=== PATIENT | male | born 1960 | race Caucasian/White ===

== ENCOUNTER 2016-12-10 20:48 | Observation (INO) | payer BC ==
--- NOTE | ~2016-12-10 | EKG ---
PATIENT: TAWANA HERNÁNDEZ UNIT #: [id number] Ventricular Rate: 192 BPM Atrial Rate: 192 BPM QRS Duration: 90 ms Q-T Interval: 244 ms QTC Calculation(Bezet): 436 ms Calculated R [place]: -13 degrees Calculated T [place]: 117 degrees Diagnosis Line: Supraventricular tachycardia Diagnosis Line: Marked ST abnormality, possible inferior Diagnosis Line: subendocardial injury Diagnosis Line: Abnormal ECG Diagnosis Line: No previous ECGs available Diagnosis Line: Confirmed by ISAIAH PIERRE MD ([id number]) on Diagnosis Line: 12/11/2016 4:42:28 PM INTERPRETING MD: GABBY MULLER
--- NOTE | ~2016-12-10 | EKG ---
PATIENT: TAWANA HERNÁNDEZ UNIT #: [id number] Ventricular Rate: 100 BPM Atrial Rate: 100 BPM P-R Interval: 152 ms QRS Duration: 100 ms Q-T Interval: 370 ms QTC Calculation(Bezet): 477 ms P [place]: 62 degrees Calculated R [place]: -6 degrees Calculated T [place]: 64 degrees Diagnosis Line: Normal sinus rhythm Diagnosis Line: Normal ECG Diagnosis Line: When compared with ECG of 10-DEC-2016 20:54, Diagnosis Line: (unconfirmed) Diagnosis Line: Vent. rate has decreased BY 92 BPM Diagnosis Line: ST no longer depressed in Inferior leads Diagnosis Line: ST no longer depressed in Lateral leads Diagnosis Line: Confirmed by ISAIAH PIERRE MD ([id number]) on Diagnosis Line: 12/11/2016 4:42:35 PM INTERPRETING MD: GABBY MULLER
--- NOTE | ~2016-12-10 | EKG ---
PATIENT: TAWANA HERNÁNDEZ UNIT #: [id number] Ventricular Rate: 64 BPM Atrial Rate: 64 BPM P-R Interval: 148 ms QRS Duration: 104 ms Q-T Interval: 474 ms QTC Calculation(Bezet): 489 ms P [place]: 69 degrees Calculated R [place]: -16 degrees Calculated T [place]: 49 degrees Diagnosis Line: Normal sinus rhythm Diagnosis Line: Prolonged QT Diagnosis Line: Abnormal ECG Diagnosis Line: No previous ECGs available Diagnosis Line: Confirmed by BAILEY HAAS MD ([id number]) on Diagnosis Line: 12/14/2016 3:37:13 PM INTERPRETING MD: TANIA
--- NOTE | ~2016-12-10 | DS ---
Unit #: [id number] #: [id number] Patient: TAWANA HERNÁNDEZ [id number] [address] [place], [place] [address] [id number] I MR#: [id number] NAME: TAWANA HERNÁNDEZ. ROOM: 328 Age: 56 Sex: M Admission Date: 12/11/2016 : 1960 Discharge Date: 12/12/2016 Attending Physician: Darrin Her M.D. Primary Care Physician: Marisa Rai M.D. DISCHARGE SUMMARY DISCHARGE DIAGNOSES 1. Paroxysmal supraventricular tachycardia, now sinus rhythm. 2. Mildly elevated troponin, peak troponin 0.16. 3. Hypertension. 4. Hyperlipidemia. 5. Diabetes mellitus type 2. 6. Tobacco abuse. 7. Cardiac cath 2015 showed nonobstructive coronary artery disease. DISCHARGE MEDICATIONS 1. Lipitor 20 mg at bedtime. 2. Coreg 12.5 mg p.o. twice a day. HOSPITAL COURSE This is a 56-year-old male known to Dr. Rodarte who had a history of paroxysmal SVT a couple of years ago. He presented to the ER on 12/11/2016 with a racing heart. In the ER, his heart rate was in the 190s. He was given adenosine and converted to normal sinus rhythm. He was admitted for observation and placed on metoprolol 25 mg p.o. twice a day and Cardizem 180 mg p.o. once a day. During his stay, he has not had a recurrence of his SVT. He is currently in sinus rhythm and stable for discharge. Of note, patient states he had not taken his home dose of Coreg in at least a week. ASSESSMENT VITAL SIGNS: Temperature 98.3, heart rate 52, respiratory rate 16, blood pressure 114/72. GENERAL: Alert and oriented x3. 56-year-old male in no acute distress. HEART: S1, S2. Regular rate and rhythm. No murmurs, rubs or gallops. LUNGS: Clear. ABDOMEN: Soft, nontender, nondistended. EXTREMITIES: No edema. Pedal pulses palpable. No cyanosis. DIAGNOSTIC STUDIES LABORATORY: Sodium 139, potassium 4.6, chloride 109, creatinine 0.8, glucose 114, magnesium 2, hemoglobin 14.8, hematocrit 44.4, white blood cell count 8.9, platelets 155. Troponin 0.13. CARDIOVASCULAR: EKG shows normal sinus rhythm with a ventricular rate of 66 and nonspecific T wave abnormalities. Echocardiogram was performed and those results are currently pending. Unit #: [id number] #: [id number] Patient: TAWANA HERNÁNDEZ DISCHARGE INSTRUCTIONS 1. The patient will be discharged home today. 2. Follow up with Dr. Rodarte in four to six weeks. Call for appointment. 3. Continue home dose Coreg 12.5 mg p.o. twice a day. The patient was instructed on the importance of taking this medication as ordered. 4. Continue Lipitor 20 mg at bedtime. 5. The patient was counseled on smoking cessation. He verbalized an understanding of this. Dictated by... Kristine Jane APRN for Dmitri Crum/henrietta TD: 12/13/2016 11:59 JOB #: [id number] DISCHARGE SUMMARY Page 1 of 1 X X DISCHARGE SUMMARY
--- NOTE | ~2016-12-10 | HP ---
Unit #: [id number] #: [id number] Patient: TAWANA HERNÁNDEZ [id number] [address] [place], [place] [address] [id number] I MR#: [id number] NAME: TAWANA HERNÁNDEZ. ROOM: 328 Age: 56 Sex: M Admission Date: 12/11/2016 : 1960 Attending Physician: Darrin Her M.D. Primary Care Physician: Marisa Rai M.D. HISTORY AND PHYSICAL DICTATOR FOR Caleb Guzman M.D. DIAGNOSES Supraventricular tachycardia. HISTORY OF PRESENT ILLNESS This is a 56-year-old male known to Dr. Rodarte in the past with a history of paroxysmal SVT and a cardiac cath in 08/20/2014 when showed nonobstructive coronary artery disease. He also has a history of hypertension, hyperlipidemia, type 2 diabetes, tobacco abuse, and a negative Lexiscan stress test on 07/28/2014 which showed EF of 48%. Echocardiogram done in 07/27/2014 showed an ejection fraction of 35% to 40%, and trace mitral regurgitation and tricuspid regurgitation. He experienced a "racing heart." At work yesterday, around 4 p.m. which resolved with rest. Around 7 p.m., the racing heart turned, it was accompanying with some mid chest tightness as well as throat tightness and shortness of air. Denies nausea, vomiting, or diaphoresis with palpitations. Denies radiating pain. He says he checked his blood pressure at home and it was a little elevated, and his heart rate was registering 190s on the electronic BP monitor. He presented to the ER where he received adenosine. Chest pressure resolved immediately, and he converted normal sinus rhythm. His troponin in ER was mildly elevated at 0.16. He was admitted for observation. PAST MEDICAL HISTORY 1. Paroxysmal SVT. 2. Nonobstructive coronary artery disease, status post cardiac cath on 08/20/2014 which showed LAD 30% mid, left circumflex 30% to 40% mid, and RCA mid 50% with EF 60%. 3. Hypertension. 4. Hyperlipidemia. 5. Diabetes mellitus type 2. 6. Tobacco abuse 1-1/2 pack per day greater than 30 years. 7. Negative Lexiscan Cardiolite with EF 48% on 07/28/2014. PAST SURGICAL HISTORY 1. Colonoscopy. 2. Cardiac cath. ALLERGIES Unit #: [id number] #: [id number] Patient: TAWANA HERNÁNDEZ Penicillin. HOME MEDICATIONS Lipitor 20 mg once a day, aspirin 81 mg once a day, and atenolol 25 mg once a day. SOCIAL HISTORY The patient is fairly active. He works in a warehouse, and is on the move during the day. Works in his garden and mows his lawn with no incidences of chest pain or shortness of air. He is a smoker 1-1/2 pack per day for over 30 years. He drinks 3 to 4 beers per week. Denies illicit drug use. FAMILY HISTORY His mother had a leaky valve in her 50s. REVIEW OF SYSTEMS A 10-point review of systems is negative except for details as noted above in HPI. PHYSICAL EXAMINATION VITAL SIGNS: Temperature 98.3, heart rate 70, respirations 20, blood pressure 156/95, height 71 inches, and weight 95.2 kg. GENERAL: This is a 56-year-old male, in no acute distress. SKIN: Warm and dry. NECK: Supple. No jugular vein distention. Normal carotid upstrokes. No carotid bruits auscultated. HEART: S1 and S2. Regular rate and rhythm. No murmurs, rubs, or gallops. LUNGS: Clear to auscultation. No rales, rhonchi, or wheezes. ABDOMEN: Soft, nontender, and nondistended. Positive bowel sounds x4 quadrants. EXTREMITIES: Bilateral lower extremities have no pretibial pitting edema. DP and PT pulses are 2+. Capillary refills less than 2 seconds. DIAGNOSTIC STUDIES LABORATORY RESULTS: Sodium 139, potassium 4.6, chloride 109, BUN 8, creatinine 0.8, glucose 114, magnesium 2. Hemoglobin 14.8, hematocrit 44.4, white blood cell count 9.9, platelets 155. AST 19, ALT 23, alkaline phosphatase 74. TSH 12.61. Point of care troponin 0.10 and repeat troponin 0.16. Lipid profile, cholesterol 140, triglycerides 123, LDL 84, and HDL 31. IMAGING STUDIES: Chest x-ray showed no active disease. CARDIOVASCULAR STUDIES: EKG showed SVT 180s. Routine EKG sinus tachycardia with ventricular rate of 102 with nonspecific T-wave abnormalities. IMPRESSION 1. Supraventricular tachycardia, now on normal sinus rhythm. 2. Mildly elevated troponin. 3. Hypertension. 4. Hyperlipidemia. 5. Diabetes mellitus type 2. 6. Tobacco abuse. 7. Catheterization on 08/2014 with nonobstructive coronary artery disease. PLAN Unit #: [id number] #: [id number] Patient: TAWANA HERNÁNDEZ 1. Continue beta-je, metoprolol 50 mg b.i.d. Hold for heart rate less than 60 or systolic blood pressure less than 100. 2. Lipitor 40 mg p.o. . 3. Add Cardizem 180 mg p.o. once a day. 4. Check hemoglobin A1c. 5. The patient has no recurrent SVT. We will continue beta-je and add Cardizem. Anticipate discharge tomorrow if no recurrent SVT. Continue to trend troponins. Dictated by Kristine Jane APRN for Dmitri Crum/lizandro TD: 12/12/2016 13:51 JOB #: [id number] HISTORY AND PHYSICAL Page 1 of 1 X X HISTORY AND PHYSICAL
--- NOTE | ~2016-12-10 | CR72 ---
[facility] A Service of [facility] RADIOLOGY TEXT RESULTS PATIENT: TAWANA HERNÁNDEZ LOCATION: [facility] 328- : 58 UNIT #: [id number] AGE: [address]: Darrin Her MD SEX: M ORDER DR: [id number] [facility] [address] [facility]. [place], [place] [address] [id number] I MR#: [id number] Acc #: [id number] NAME: TAWANA HERNÁNDEZ. : 1960 SEX: M STUDY DATE/TIME: 12/10/2016 21:47 UNIT: [address] ROOM: [facility] STUDY DESCRIPTION: CR Chest Single View Portable Attending Physician: Darrin Her M.D. Ordering Physician: Christiana Hercules M.D. Primary Care Physician: Marisa Rai M.D. MEDICAL IMAGING REPORT This report is preliminary unless electronic signature is present EXAM Portable chest, 12/10 INDICATIONS Chest pain and shortness of air that started today. History of smoking. FINDINGS AP portable chest is compared with 09/17/2016. Cardiac and mediastinal contours are normal. The lungs are clear. There is no pneumothorax. IMPRESSION No active disease. Dictated by... Gian Logan Jr., M.D. THIS IS AN ELECTRONICALLY VERIFIED REPORT Gian Logan Jr., M.D. at 12/11/2016 10:05 AM JOHAN/carmella TD: 12/11/2016 08:59 JOB #: [id number] MEDICAL IMAGING REPORT Page 1 of 1 COPY
[2016-12-10 22:27] LABS: BASOPHIL# 0.1 X10e3 (0-0.3); BASOPHIL% 1.2 % (0-2.5); EOSINOPHIL# 0.2 X10e3 (0-0.7); EOSINOPHIL% 2.7 % (0.0-7.0); HEMATOCRIT 43.6 % (38.0-50.0); HEMOGLOBIN 14.9 gm/dL (13.0-16.0); LYMPHOCYTE# 2.5 X10e3 (1.0-3.5); LYMPHOCYTE% 27.3 % (17.0-45.0); MEAN CELL VOLUME 93.8 FL (83-96); MEAN CORPUSCULAR HEMOGLOBIN 32.1 PG (28-34); MEAN CORPUSCULAR HGB CONC 34.2 g/dL (30-36); MEAN PLATELET VOLUME 8.8 FL (6.5-11.5); MONOCYTE# 0.9 X10e3 (0-1.0); MONOCYTE% 9.7 % (3.0-12.0); NEUTROPHIL# 5.4 X10e3 (1.5-7.1); NEUTROPHIL% 59.1 % (40-75); PLATELET COUNT 152 X10e3 (140-420); RED BLOOD COUNT 4.65 X10e (3.90-5.60); RED CELL DISTRIBUTION WIDTH 12.9 % (11.0-15.5); WHITE BLOOD COUNT 9.2 X10e3 (4.0-10.5)
[2016-12-10 22:28] LABS: POC - CKMB 2.6 ng/mL (0.0-7.9); POC - TROPONIN 0.1 ng/mL (<=0.05)
[2016-12-10 22:28] LABS: DIFF IND NO
[2016-12-10 22:41] LABS: PROTHROMBIN TIME (PATIENT) 10.4 SECONDS (9.6-11.5)
[2016-12-10 22:56] LABS: ALBUMIN SERUM 3.8 g/dL (3.5-5.0); ALKALINE PHOSPHATASE 73 U/L (32-92); ALT (SGPT) 25 U/L (10-40); AST (SGOT) 19 U/L (10-42); BILIRUBIN,TOTAL 0.6 mg/dL (0.2-2.0); BLOOD UREA NITROGEN 10 mg/dL (9-23); CALCIUM SERUM 8.2 mg/dL (8.4-10.2); CARBON DIOXIDE 23 mmol/L (22-31); CHLORIDE 108 mmol/L (100-111); CREATININE SERUM 0.8 mg/dL (0.6-1.4); GLOM FILT RATE Estimated 99.2 mL/min (>60); GLUCOSE FASTING 137 mg/dL (70-110); POTASSIUM 3.3 mmol/L (3.5-5.1); PROTEIN TOTAL SERUM 6.3 g/dL (6.0-8.3); SODIUM 141 mmol/L (135-145)
[2016-12-10 22:58] LABS: BILIRUBIN, DIRECT <0.1 mg/dL (0.0-0.2); BILIRUBIN,INDIRECT 0.5 mg/dL (0.0-0.9)
[2016-12-11 00:36] LABS: POC - CKMB 1.9 ng/mL (0.0-7.9); POC - TROPONIN 0.1 ng/mL (<=0.05)
[2016-12-11 07:30] LABS: BASOPHIL# 0.1 X10e3 (0-0.3); BASOPHIL% 0.7 % (0-2.5); EOSINOPHIL# 0.2 X10e3 (0-0.7); EOSINOPHIL% 2.1 % (0.0-7.0); HEMATOCRIT 44.4 % (38.0-50.0); HEMOGLOBIN 14.8 gm/dL (13.0-16.0); LYMPHOCYTE# 2.7 X10e3 (1.0-3.5); LYMPHOCYTE% 26.8 % (17.0-45.0); MEAN CELL VOLUME 94.8 FL (83-96); MEAN CORPUSCULAR HEMOGLOBIN 31.7 PG (28-34); MEAN CORPUSCULAR HGB CONC 33.5 g/dL (30-36); MEAN PLATELET VOLUME 9.5 FL (6.5-11.5); MONOCYTE# 0.9 X10e3 (0-1.0); MONOCYTE% 8.7 % (3.0-12.0); NEUTROPHIL# 6.1 X10e3 (1.5-7.1); NEUTROPHIL% 61.7 % (40-75); PLATELET COUNT 155 X10e3 (140-420); RED BLOOD COUNT 4.68 X10e (3.90-5.60); RED CELL DISTRIBUTION WIDTH 12.8 % (11.0-15.5); WHITE BLOOD COUNT 9.9 X10e3 (4.0-10.5)
[2016-12-11 07:31] LABS: DIFF IND NO
[2016-12-11 08:00] LABS: ALBUMIN SERUM 3.6 g/dL (3.5-5.0); BILIRUBIN,TOTAL 0.5 mg/dL (0.2-2.0); CALCIUM SERUM 8.5 mg/dL (8.4-10.2); CREATININE SERUM 0.8 mg/dL (0.6-1.4); GLOM FILT RATE Estimated 99.2 mL/min (>60); POTASSIUM 4.6 mmol/L (3.5-5.1); PROTEIN TOTAL SERUM 5.8 g/dL (6.0-8.3)
[2016-12-11 08:08] LABS: %MB 2.5 % (0.0-4.0)
[2016-12-11 13:51] LABS: MB 4.1 ng/ml
[2016-12-12] MEDS ORDERED: ASPIRIN81 MG PO (11:59)
[2016-12-12] MEDS ORDERED: LIPITOR20 MG PO (11:59)
== END 2016-12-12 12:32 | disposition home or self-care (01) | DRG 310 ==
LOC: CED 20:48 → CEDOF 12-11 → C3A PCU 12-11 00:29 → CEDOF 12-11 00:29 → CED 12-11 00:29 → CEDOF 12-11 02:47 → C3A PCU 12-11 02:47
PROVIDERS: Emergency Medicine
DX: I47.1 Supraventricular tachycardia (principal); R79.89 Other specified abnormal findings of blood chemistry; I10 Essential (primary) hypertension; E78.5 Hyperlipidemia, unspecified; E11.9 Type 2 diabetes mellitus without complications; I25.10 Atherosclerotic heart disease of native coronary artery without angina pectoris; F17.200 Nicotine dependence, unspecified, uncomplicated; Z79.82 Long term (current) use of aspirin; Z79.899 Other long term (current) drug therapy; Z82.49 Family history of ischemic heart disease and other diseases of the circulatory system; Z98.890 Other specified postprocedural states; Z88.0 Allergy status to penicillin
CPT/HCPCS: 36415; 71010; 80048; 80053; 80061; 80076; 82550; 82553; 83036; 83735; 84443; 84484; 85025; 85610; 93005; 93306; 96361; 96374; 99285; G0378; J0153